=== PATIENT | male | born 1995 | race African-American/Black ===

== ENCOUNTER 2021-09-29 09:43 | Emergency (ER) | payer BC ==
[~2021-09-29] VITALS: Ht 170.2 cm; Wt 56.7 kg
--- NOTE | 2021-09-29 09:43 | NUR ---
PT BIB SELF C/O BILATERAL FLANK PAIN STARTED YESTERDAY. PT IS AAOX4, NOT IN RESPIRATORY DISTRESS, V/S STABLE, KEPT RESTED AND COMFORTABLE. WILL CONTINUE TO MONITOR.
--- NOTE | 2021-09-29 10:00 | NUR ---
URINE SPECIMEN COLLECTED AND SENT TO LAB.
--- NOTE | 2021-09-29 10:06 | NUR ---
SEEN AND EXMAINED BY .
[2021-09-29] MEDS ORDERED: KETOROLAC TROMETHAMINE 15 MG/ML VIAL ONE ×2 (10:12→13:22)
--- NOTE | 2021-09-29 10:15 | NUR ---
IV LINE ESTABLISHED BLOOD DRAWN AND SENT TO LAB.
[2021-09-29] MEDS ORDERED: IV NS 0.9% 1,000 ML BAG IV ONE (10:30)
[2021-09-29] MEDS ORDERED: KETOROLAC TROMETHAMINE INJ 30 MG/ML VIAL IV ONE ×2 (10:30→13:30)
[2021-09-29 10:40] LABS: CREATININE 1.2 mg/dL (0.6-1.3); POTASSIUM 3.9 mmol/L (3.5-5.1)
[2021-09-29 10:46] LABS: ALBUMIN 3.8 g/dL (3.4-5.0); BILIRUBIN,DIRECT 0.4 mg/dL (0.0-0.2); BILIRUBIN,TOTAL 2.2 mg/dL (0.2-1.0); TOTAL PROTEIN, SERUM 7.8 g/dL (6.4-8.2)
[2021-09-29 10:47] LABS: BASOPHILS % (AUTO) 0.2 % (0.0-2.0); HEMATOCRIT 43 % (39-51); HEMOGLOBIN 14.4 g/dL (13.5-17.5); LYMPHOCYTES # (AUTO) 0.9 K/uL (0.8-4.8); LYMPHOCYTES % (AUTO) 7.1 % (20.0-44.0); MEAN CORPUSCULAR HGB CONC 33 g/dl (31.0-36.0); MEAN CORPUSCULAR VOLUME 98 fL (80-96); MONOCYTES % (AUTO) 7.3 % (2.0-12.0); NEUTROPHILS # (AUTO) 11.3 K/uL (1.8-8.9); NEUTROPHILS % (AUTO) 85.4 % (43.0-81.0); PLATELET COUNT (AUTO) 189 K/uL (150-450); WHITE BLOOD COUNT (AUTO) 13.2 K/uL (4.3-11.0)
[2021-09-29 10:56] LABS: BILIRUBIN,URINE NEGATIVE (NEGATIVE); COLOR,URINE DARK YELLOW (YELLOW); LEUKOCYTE ESTERASE ,URINE MODERATE (NEGATIVE); NITRITE, URINE POSITIVE (NEGATIVE); PROTEIN,URINE NEGATIVE (NEGATIVE); UGLUCOSE NEGATIVE (NEGATIVE)
[2021-09-29 11:11] LABS: BACTERIA,URINE 2+ /HPF (None Seen)
[2021-09-29 11:12] LABS: SQUAMOUS EPITHELIAL CELL,UR Few /HPF (None Seen)
[2021-09-29] MEDS ORDERED: CIPR500T5 PO (11:41)
--- NOTE | 2021-09-29 12:42 | NUR ---
PT IS BACK FROM THE CT SCAN.
[2021-09-29] MEDS ORDERED: IBUP-1957 PO (13:03)
[2021-09-29] MEDS ORDERED: IV NS 0.9% 1,000 ML IV ONE (13:30)
--- NOTE | 2021-09-29 14:21 | NUR ---
IV removed. Catheter intact and site benign. Pressure and 4x4 applied to site. No bleeding noted. Patient discharged to home in stable condition. Written and verbal after care instructions given. Patient verbalizes understanding of instruction.
[2021-09-29 14:22] VITALS: BP 125/73
== END 2021-09-29 14:22 | disposition home or self-care (01) ==
LOC: ER 09:49
DX: N39.0 Urinary tract infection, site not specified (principal); E83.59 Other disorders of calcium metabolism; N29 Other disorders of kidney and ureter in diseases classified elsewhere
CPT/HCPCS: 36415; 74176; 80048; 80076; 81001; 83690; 85025; 87077; 87086; 87186; 96361; 96374; 96376; 99284; J1885 ×2; J7030 ×2

== ENCOUNTER 2022-06-20 14:47 | Emergency (ER) | payer SELFPAY ==
[~2022-06-20] VITALS: Ht 170.2 cm; Wt 54.9 kg
[~2022-06-20 14:47] MED LIST: CIPR500T5 PO; IBUP-1957 PO
--- NOTE | 2022-06-20 15:10 | NUR ---
visit for suture removal, R hand laceration repair 10 days ago
--- NOTE | 2022-06-20 15:22 | NUR ---
STAFF AT BEDSIDE FOR SUTURE REMOVAL
[2022-06-20 15:30] VITALS: BP 111/70
--- NOTE | 2022-06-20 15:30 | NUR ---
Patient discharged to home in stable condition. Written and verbal after care instructions given. Patient verbalizes understanding of instruction.
== END 2022-06-20 15:42 | disposition home or self-care (01) ==
LOC: ER 14:49
DX: S61.411D Laceration without foreign body of right hand, subsequent encounter (principal); W26.8XXD Contact with other sharp object(s), not elsewhere classified, subsequent encounter

== ENCOUNTER 2025-08-22 17:37 | Emergency (ER) | payer OTHER ==
[~2025-08-22] VITALS: Ht 170.2 cm; Wt 56.7 kg
[2025-08-22 17:46] VITALS: BP 103/69; TEMP 98.1
[2025-08-22 18:20] VITALS: O2SAT 99
== END 2025-08-22 18:20 | disposition home or self-care (01) ==
LOC: ER 17:49
DX: Z00.00 Encounter for general adult medical examination without abnormal findings (principal); Z79.1 Long term (current) use of non-steroidal anti-inflammatories (NSAID)